=== PATIENT | male | born 1975 | race Hispanic/Latino ===

== ENCOUNTER 2024-03-31 17:18 | Emergency (ER) | payer SELFPAY ==
[2024-03-31] MEDS ORDERED: HYDROcodone/Acetaminophen 5/325 mg Tablet ONE (20:09)
== END 2024-03-31 20:05 | disposition home or self-care (01) ==
LOC: ERS 17:18
DX: S90.31XA Contusion of right foot, initial encounter (principal); W22.8XXA Striking against or struck by other objects, initial encounter